=== PATIENT | female | born 1965 | race Caucasian/White ===

== ENCOUNTER 2017-08-17 07:44 | Emergency (ER) | payer SELFPAY ==
[~2017-08-17] VITALS: Ht 160 cm; Wt 60.0 kg
[2017-08-17] MEDS ORDERED: SODIUM CHLORIDE 0.9% 500 ML IV ONE (11:15)
[2017-08-17] MEDS ORDERED: OSELTAMIVIR 75MG CAPSULE PO ONE (11:30)
[2017-08-17] MEDS ORDERED: ACETAMINOPHEN 325MG TABLET PO ONE (11:30)
[2017-08-17 11:56] VITALS: BP 112/58
== END 2017-08-17 12:05 | disposition home or self-care (01) ==
LOC: ER 07:54
DX: J10.1 Influenza due to other identified influenza virus with other respiratory manifestations (principal)
CPT/HCPCS: 81025; 87070; 87430; 87804; 96360; 99284; J7040; Z7610